=== PATIENT | male | born 1930 | race Caucasian/White ===

== ENCOUNTER 2017-03-12 16:29 | Inpatient (IN) | payer MEDICARE, OTHER ==
[2017-03-12] MEDS ORDERED: FUROSEMIDE 100 MG SOL IV ONE (16:47)
[2017-03-12 16:56] LABS: BASOPHILS % (AUTO) 1 % (0-3); EOSINOPHILS % (AUTO) 0 % (0-9); HEMATOCRIT 32 % (39-53); MEAN CORPUSCULAR HGB CONC 32.2 gm/dl (32.0-36.0); MEAN CORPUSCULAR VOLUME 94 fL (80-100); MONOCYTES % (AUTO) 10.2 % (0-12); NEUTROPHILS % (AUTO) 79.4 % (37-80)
[2017-03-12 17:12] LABS: ALBUMIN 3.3 gm/dl (3.4-5.0); CALCIUM 8.7 mg/dl (8.5-10.1); POTASSIUM 4.4 mMol/L (3.5-5.1)
[2017-03-12] MEDS ORDERED: FAMOTIDINE 10 MG PO PRN (17:53)
[2017-03-12] MEDS ORDERED: CARVEDILOL 3.125 MG TAB PO SCH (18:00)
[2017-03-12] MEDS: SODIUM CHLORIDE 0.9% FLUSH 10 ML SOL IV SCH ×2 (18:09→22:01)
[2017-03-12] MEDS ORDERED: FAMOTIDINE 20 MG TAB PO PRN (18:37)
[2017-03-12] MEDS: NOVOLOG FLEXPEN SC SCH ×2 (18:53→21:34)
[2017-03-12] MEDS: LATANOPROST 0.005% SOL LEFTEYE SCH (21:25)
[2017-03-12] MEDS: TRIAMCINOLONE 0.1% CREAM CRE TOP SCH (21:26)
[2017-03-12] MEDS: SIMVASTATIN 20 MG TAB PO SCH (21:27)
[2017-03-12] MEDS: TEMAZEPAM 15MG 15 MG CAP PO PRN (22:01)
[2017-03-13] MEDS: SODIUM CHLORIDE 0.9% FLUSH 10 ML SOL IV SCH ×3 (01:31→17:27)
[2017-03-13] MEDS: NOVOLOG FLEXPEN SC SCH ×4 (06:58→20:21)
[2017-03-13] MEDS ORDERED: LEVOTHYROXINE SODIUM 50 MCG TAB PO SCH (07:00)
[2017-03-13] MEDS ORDERED: GLIMEPIRIDE 2 MG TAB PO SCH ×2 (07:00→09:00)
[2017-03-13 07:28] LABS: HEMATOCRIT 30 % (39-53); MEAN CORPUSCULAR HGB CONC 32.8 gm/dl (32.0-36.0); MEAN CORPUSCULAR VOLUME 93 fL (80-100)
[2017-03-13 07:39] LABS: CALCIUM 9.1 mg/dl (8.5-10.1); THYROID STIMULATING HORMONE 4.687 uIU/ml (0.358-3.740)
[2017-03-13 08:13] LABS: EOSINOPHILS % (MANUAL) 1 % (0-9); LYMPHOCYTES % (MANUAL) 12 % (10-50)
[2017-03-13 08:14] LABS: ANISOCYTOSIS SLIGHT AMT; BASOPHILS % (MANUAL) 0 % (0-3); TARGET CELLS PRESENT
[2017-03-13 08:15] LABS: OVALOCYTES PRESENT
[2017-03-13] MEDS ORDERED: POTASSIUM CHLORIDE 10 MEQ TER PO SCH (09:00)
[2017-03-13] MEDS ORDERED: FUROSEMIDE 100 MG SOL IV ONE (09:00)
[2017-03-13] MEDS: POTASSIUM CHLORIDE 10 MEQ TER PO SCH ×4 (09:06→20:17)
[2017-03-13] MEDS: TRIAMCINOLONE 0.1% CREAM CRE TOP SCH ×2 (09:07→20:07)
[2017-03-13] MEDS: LEVOTHYROXINE SODIUM 50 MCG TAB PO SCH (09:08)
[2017-03-13] MEDS: LATANOPROST 0.005% SOL LEFTEYE SCH (20:18)
[2017-03-13] MEDS: SIMVASTATIN 20 MG TAB PO SCH (20:19)
[2017-03-14] MEDS: TEMAZEPAM 15MG 15 MG CAP PO PRN ×2 (01:10→21:08)
[2017-03-14] MEDS: SODIUM CHLORIDE 0.9% FLUSH 10 ML SOL IV SCH ×4 (01:10→18:34)
[2017-03-14] MEDS: LEVOTHYROXINE SODIUM 50 MCG TAB PO SCH (06:25)
[2017-03-14] MEDS: NOVOLOG FLEXPEN SC SCH ×4 (06:25→21:15)
[2017-03-14 07:21] LABS: BASOPHILS % (AUTO) 1 % (0-3); EOSINOPHILS % (AUTO) 0 % (0-9); HEMATOCRIT 32 % (39-53); MEAN CORPUSCULAR HGB CONC 32.3 gm/dl (32.0-36.0); MEAN CORPUSCULAR VOLUME 95 fL (80-100); MONOCYTES % (AUTO) 12.5 % (0-12); NEUTROPHILS % (AUTO) 77.4 % (37-80)
[2017-03-14 07:40] LABS: CALCIUM 9.3 mg/dl (8.5-10.1)
[2017-03-14] MEDS: POTASSIUM CHLORIDE 10 MEQ TER PO SCH ×4 (08:43→21:08)
[2017-03-14] MEDS: TRIAMCINOLONE 0.1% CREAM CRE TOP SCH ×2 (08:46→21:09)
[2017-03-14] MEDS ORDERED: GLIPIZIDE 5 MG TAB PO SCH (09:00)
[2017-03-14] MEDS: GLIPIZIDE 5 MG TAB PO SCH (09:43)
[2017-03-14] MEDS: FUROSEMIDE 40 MG SOL IV SCH ×2 (09:43→12:50)
[2017-03-14] MEDS ORDERED: WARFARIN SODIUM 2.5 MG TAB PO SCH (18:00)
[2017-03-14] MEDS ORDERED: WARFARIN SODIUM 5 MG TAB PO SCH (18:00)
[2017-03-14] MEDS: SIMVASTATIN 20 MG TAB PO SCH (21:08)
[2017-03-14] MEDS: LATANOPROST 0.005% SOL LEFTEYE SCH (21:08)
[2017-03-15] MEDS: SODIUM CHLORIDE 0.9% FLUSH 10 ML SOL IV SCH ×4 (02:29→18:51)
[2017-03-15] MEDS: NOVOLOG FLEXPEN SC SCH ×4 (06:31→20:56)
[2017-03-15] MEDS: LEVOTHYROXINE SODIUM 50 MCG TAB PO SCH (07:00)
[2017-03-15] MEDS: GLIPIZIDE 5 MG TAB PO SCH (08:38)
[2017-03-15] MEDS: POTASSIUM CHLORIDE 10 MEQ TER PO SCH ×6 (08:39→20:58)
[2017-03-15] MEDS: TRIAMCINOLONE 0.1% CREAM CRE TOP SCH ×2 (08:39→21:03)
[2017-03-15] MEDS: FUROSEMIDE 40 MG SOL IV SCH ×2 (08:52→12:59)
[2017-03-15] MEDS ORDERED: GLIPIZIDE 5 MG TAB PO SCH ×2 (09:40→09:45)
[2017-03-15] MEDS: SPIRONOLACTONE 25 MG TAB PO SCH (10:09)
[2017-03-15] MEDS ORDERED: WARFARIN SODIUM 5 MG TAB PO SCH (18:00)
[2017-03-15] MEDS: LATANOPROST 0.005% SOL LEFTEYE SCH (20:56)
[2017-03-15] MEDS: SIMVASTATIN 20 MG TAB PO SCH (20:57)
[2017-03-15] MEDS: TEMAZEPAM 15MG 15 MG CAP PO PRN ×2 (21:12→23:42)
[2017-03-16] MEDS: SODIUM CHLORIDE 0.9% FLUSH 10 ML SOL IV SCH ×4 (03:10→12:09)
[2017-03-16] MEDS: LEVOTHYROXINE SODIUM 50 MCG TAB PO SCH (06:40)
[2017-03-16] MEDS: NOVOLOG FLEXPEN SC SCH ×2 (06:41→12:05)
[2017-03-16 07:32] LABS: BASOPHILS % (AUTO) 2 % (0-3); EOSINOPHILS % (AUTO) 0 % (0-9); HEMATOCRIT 33 % (39-53); MEAN CORPUSCULAR HGB CONC 32.6 gm/dl (32.0-36.0); MEAN CORPUSCULAR VOLUME 94 fL (80-100); MONOCYTES % (AUTO) 13.3 % (0-12); NEUTROPHILS % (AUTO) 75.6 % (37-80)
[2017-03-16 07:35] LABS: CALCIUM 9.3 mg/dl (8.5-10.1); POTASSIUM 4.3 mMol/L (3.5-5.1)
[2017-03-16 08:45] VITALS: BP 164/71; PULSE 64; RESP 18; TEMP 97.8; O2SAT 93
[2017-03-16] MEDS: FUROSEMIDE 40 MG SOL IV SCH ×2 (08:49→12:09)
[2017-03-16] MEDS: TRIAMCINOLONE 0.1% CREAM CRE TOP SCH (08:49)
[2017-03-16] MEDS: SPIRONOLACTONE 25 MG TAB PO SCH (08:49)
[2017-03-16] MEDS: POTASSIUM CHLORIDE 10 MEQ TER PO SCH (09:44)
[2017-03-16] MEDS ORDERED: AMLODIPINE 5 MG TAB PO SCH (11:45)
== END 2017-03-16 14:22 | disposition home health service (06) | DRG 292 ==
LOC: ACUTE CARE 16:29
PROVIDERS: ADMIT Emergency Medicine; ATTEND Emergency Medicine
DX: I50.9 Heart failure, unspecified (principal); N17.9 Acute kidney failure, unspecified; E11.59 Type 2 diabetes mellitus with other circulatory complications; I13.0 Hypertensive heart and chronic kidney disease with heart failure and stage 1 through stage 4 chronic kidney disease, or unspecified chronic kidney disease; E87.6 Hypokalemia; S81.802A Unspecified open wound, left lower leg, initial encounter; Z79.01 Long term (current) use of anticoagulants; N18.9 Chronic kidney disease, unspecified; E03.2 Hypothyroidism due to medicaments and other exogenous substances; T46.2X5A Adverse effect of other antidysrhythmic drugs, initial encounter
CPT/HCPCS: 36415; 71010; 80048; 80053; 82962; 83880; 84443; 85007; 85025; 85027; 85610; 93005; 93012; 93306; J1940; A6232; J1815

== ENCOUNTER 2017-04-13 21:54 | Inpatient (IN) | payer MEDICARE, OTHER ==
[~2017-04-13 21:54] MED LIST: HYDROMORPHONE HCL 2 MG/ML SOL IV ONE; ONDANSETRON HCL 4 MG/2 ML SOL IV ONE
[2017-04-13] MEDS ORDERED: FUROSEMIDE 100 MG SOL IV ONE (22:22)
[2017-04-13] MEDS ORDERED: FUROSEMIDE 100 MG SOL ONE (22:29)
[2017-04-13 22:32] LABS: BASOPHILS % (AUTO) 2 % (0-3); EOSINOPHILS % (AUTO) 0 % (0-9); HEMATOCRIT 32 % (39-53); MEAN CORPUSCULAR HGB CONC 34.1 gm/dl (32.0-36.0); MEAN CORPUSCULAR VOLUME 91 fL (80-100); MONOCYTES % (AUTO) 12.7 % (0-12); NEUTROPHILS % (AUTO) 79.9 % (37-80)
[2017-04-13 22:47] LABS: ALBUMIN 3.3 gm/dl (3.4-5.0); ALT 36 IU/L (14-63); CALCIUM 8.4 mg/dl (8.5-10.1); GLOM FILT RATE 21 mL/min (>60); POTASSIUM 4.4 mMol/L (3.5-5.1); SODIUM 124 mMol/L (136-145)
[2017-04-14] MEDS ORDERED: CARBOXYMETHYLCELLULOSE OP PRN (00:10)
[2017-04-14] MEDS ORDERED: FAMOTIDINE 20 MG TAB PO PRN (00:10)
[2017-04-14] MEDS: TEMAZEPAM 15MG 15 MG CAP PO PRN ×2 (01:09→21:59)
[2017-04-14] MEDS: LEVOTHYROXINE SODIUM 50 MCG TAB PO SCH (06:08)
[2017-04-14] MEDS ORDERED: [UNRECOGNIZED DRUG - OTHER] TOP SCH (07:00)
[2017-04-14] MEDS ORDERED: ALLOPURINOL 100 MG TAB PO SCH (07:00)
[2017-04-14] MEDS ORDERED: GLIMEPIRIDE 2 MG TAB PO SCH ×2 (07:00→09:00)
[2017-04-14 07:17] LABS: CALCIUM 8.2 mg/dl (8.5-10.1); POTASSIUM 3.3 mMol/L (3.5-5.1)
[2017-04-14] MEDS ORDERED: FUROSEMIDE 40 MG SOL IV SCH (08:00)
[2017-04-14] MEDS: SODIUM CHLORIDE 0.9% FLUSH 10 ML SOL IV SCH ×3 (08:12→23:14)
[2017-04-14] MEDS ORDERED: WARFARIN SODIUM 2.5 MG TAB PO SCH ×2 (09:00→18:00)
[2017-04-14] MEDS ORDERED: FUROSEMIDE 100 MG SOL IV SCH ×2 (09:00→11:00)
[2017-04-14] MEDS ORDERED: ENOXAPARIN 40 MG SOL SC SCH (09:00)
[2017-04-14] MEDS: SPIRONOLACTONE 25 MG TAB PO SCH (09:53)
[2017-04-14] MEDS: UBIDECARENONE 100 MG CAPSULE PO SCH (09:53)
[2017-04-14] MEDS: ALLOPURINOL 100 MG TAB PO SCH (09:54)
[2017-04-14] MEDS: CARVEDILOL 3.125 MG TAB PO SCH ×2 (09:54→21:25)
[2017-04-14] MEDS: FISH OIL 500 MG CAP PO SCH (09:54)
[2017-04-14] MEDS: MULTIVITAMIN2 1 EA TAB PO SCH (09:54)
[2017-04-14] MEDS: AMLODIPINE 5 MG TAB PO SCH (09:55)
[2017-04-14] MEDS: GLIMEPIRIDE 2 MG TAB PO SCH (10:04)
[2017-04-14] MEDS ORDERED: PEG-400/PROPYLENE GLYCOL 1 DROP SOL OP PRN (10:44)
[2017-04-14] MEDS: FUROSEMIDE 100 MG SOL IV SCH ×2 (15:32→23:14)
[2017-04-14] MEDS: LATANOPROST 0.005% SOL LEFTEYE SCH (21:25)
[2017-04-14] MEDS: SIMVASTATIN 20 MG TAB PO SCH (21:25)
[2017-04-15] MEDS: LEVOTHYROXINE SODIUM 50 MCG TAB PO SCH (06:03)
[2017-04-15 07:32] LABS: CALCIUM 8.5 mg/dl (8.5-10.1)
[2017-04-15] MEDS: FUROSEMIDE 100 MG SOL IV SCH ×2 (08:44→16:01)
[2017-04-15] MEDS: FISH OIL 500 MG CAP PO SCH (08:45)
[2017-04-15] MEDS: AMLODIPINE 5 MG TAB PO SCH (08:45)
[2017-04-15] MEDS: GLIMEPIRIDE 2 MG TAB PO SCH (08:45)
[2017-04-15] MEDS: UBIDECARENONE 100 MG CAPSULE PO SCH (08:45)
[2017-04-15] MEDS: MULTIVITAMIN2 1 EA TAB PO SCH (08:45)
[2017-04-15] MEDS: SODIUM CHLORIDE 0.9% FLUSH 10 ML SOL IV SCH ×2 (08:45→16:01)
[2017-04-15] MEDS: SPIRONOLACTONE 25 MG TAB PO SCH (08:45)
[2017-04-15] MEDS: CARVEDILOL 3.125 MG TAB PO SCH ×2 (08:45→21:43)
[2017-04-15] MEDS: ALLOPURINOL 100 MG TAB PO SCH (08:46)
[2017-04-15] MEDS ORDERED: WARFARIN SODIUM 5 MG TAB PO SCH ×2 (09:00→18:00)
[2017-04-15] MEDS: POTASSIUM CHLORIDE 10 MEQ TER PO SCH ×2 (10:51→21:44)
[2017-04-15] MEDS: TEMAZEPAM 15MG 15 MG CAP PO PRN (21:43)
[2017-04-15] MEDS: SIMVASTATIN 20 MG TAB PO SCH (21:43)
[2017-04-15] MEDS: LATANOPROST 0.005% SOL LEFTEYE SCH (21:44)
[2017-04-16] MEDS: SODIUM CHLORIDE 0.9% FLUSH 10 ML SOL IV SCH ×5 (00:35→23:30)
[2017-04-16] MEDS: FUROSEMIDE 100 MG SOL IV SCH ×2 (00:36→08:13)
[2017-04-16] MEDS: LEVOTHYROXINE SODIUM 50 MCG TAB PO SCH (06:52)
[2017-04-16 07:35] LABS: CALCIUM 8.5 mg/dl (8.5-10.1)
[2017-04-16 07:38] LABS: POTASSIUM 2.9 mMol/L (3.5-5.1)
[2017-04-16] MEDS ORDERED: POTASSIUM CHLORIDE 2 MEQ/ML 40 MEQ, LIDOCAINE HCL 1% MDV 2 ML in SODIUM CHLORIDE 0.9% 5... IV ONE (08:11)
[2017-04-16] MEDS: UBIDECARENONE 100 MG CAPSULE PO SCH (08:14)
[2017-04-16] MEDS: SPIRONOLACTONE 25 MG TAB PO SCH (08:14)
[2017-04-16] MEDS: CARVEDILOL 3.125 MG TAB PO SCH ×2 (08:14→20:43)
[2017-04-16] MEDS: FISH OIL 500 MG CAP PO SCH (08:14)
[2017-04-16] MEDS: AMLODIPINE 5 MG TAB PO SCH (08:14)
[2017-04-16] MEDS: ALLOPURINOL 100 MG TAB PO SCH (08:15)
[2017-04-16] MEDS: MULTIVITAMIN2 1 EA TAB PO SCH (08:15)
[2017-04-16] MEDS ORDERED: LIDOCAINE HCL 1% MPF SOL ONE (09:38)
[2017-04-16] MEDS ORDERED: POTASSIUM CHLORIDE 2 MEQ/ML SOL IV ONE (09:38)
[2017-04-16] MEDS: POTASSIUM CHLORIDE 10 MEQ TER PO SCH ×2 (09:48→20:42)
[2017-04-16] MEDS ORDERED: WARFARIN SODIUM 5 MG TAB PO ONE (18:00)
[2017-04-16] MEDS: LATANOPROST 0.005% SOL LEFTEYE SCH (20:34)
[2017-04-16] MEDS: SIMVASTATIN 20 MG TAB PO SCH (20:43)
[2017-04-16] MEDS ORDERED: FUROSEMIDE 100 MG SOL IV SCH (21:00)
[2017-04-16] MEDS: TEMAZEPAM 15MG 15 MG CAP PO PRN ×2 (21:48→23:30)
[2017-04-17] MEDS: LEVOTHYROXINE SODIUM 50 MCG TAB PO SCH (06:59)
[2017-04-17 07:25] LABS: CALCIUM 8.7 mg/dl (8.5-10.1); POTASSIUM 3.1 mMol/L (3.5-5.1)
[2017-04-17] MEDS ORDERED: POTASSIUM CHLORIDE 2 MEQ/ML 60 MEQ, LIDOCAINE HCL 1% MDV 2 ML in SODIUM CHLORIDE 0.9% 1... IV ONE (07:52)
[2017-04-17] MEDS ORDERED: LIDOCAINE HCL 1% MPF SOL ONE (08:48)
[2017-04-17] MEDS ORDERED: POTASSIUM CHLORIDE 2 MEQ/ML SOL IV ONE (08:49)
[2017-04-17] MEDS: SODIUM CHLORIDE 0.9% FLUSH 10 ML SOL IV SCH ×3 (09:14→23:52)
[2017-04-17] MEDS: SPIRONOLACTONE 25 MG TAB PO SCH (09:15)
[2017-04-17] MEDS: UBIDECARENONE 100 MG CAPSULE PO SCH (09:19)
[2017-04-17] MEDS: FISH OIL 500 MG CAP PO SCH (09:20)
[2017-04-17] MEDS: CARVEDILOL 3.125 MG TAB PO SCH ×2 (09:20→21:46)
[2017-04-17] MEDS: AMLODIPINE 5 MG TAB PO SCH (09:21)
[2017-04-17] MEDS: MULTIVITAMIN2 1 EA TAB PO SCH (09:22)
[2017-04-17] MEDS: POTASSIUM CHLORIDE 10 MEQ TER PO SCH ×2 (09:23→21:46)
[2017-04-17] MEDS: ALLOPURINOL 100 MG TAB PO SCH (09:23)
[2017-04-17] MEDS: FUROSEMIDE 40 MG TAB PO SCH ×2 (09:29→12:07)
[2017-04-17] MEDS ORDERED: WARFARIN SODIUM 2.5 MG TAB PO ONE (18:00)
[2017-04-17] MEDS: TEMAZEPAM 15MG 15 MG CAP PO PRN ×2 (21:46→23:52)
[2017-04-17] MEDS: LATANOPROST 0.005% SOL LEFTEYE SCH (21:48)
[2017-04-17] MEDS: SIMVASTATIN 20 MG TAB PO SCH (21:51)
[2017-04-18] MEDS: LEVOTHYROXINE SODIUM 50 MCG TAB PO SCH (06:21)
[2017-04-18 07:40] LABS: CALCIUM 8.8 mg/dl (8.5-10.1); POTASSIUM 3.8 mMol/L (3.5-5.1)
[2017-04-18] MEDS: SODIUM CHLORIDE 0.9% FLUSH 10 ML SOL IV SCH ×3 (08:46→21:09)
[2017-04-18] MEDS: SPIRONOLACTONE 25 MG TAB PO SCH (08:49)
[2017-04-18] MEDS: UBIDECARENONE 100 MG CAPSULE PO SCH (08:49)
[2017-04-18] MEDS: CARVEDILOL 3.125 MG TAB PO SCH ×2 (08:49→21:09)
[2017-04-18] MEDS: FISH OIL 500 MG CAP PO SCH (08:49)
[2017-04-18] MEDS: AMLODIPINE 5 MG TAB PO SCH (08:50)
[2017-04-18] MEDS: MULTIVITAMIN2 1 EA TAB PO SCH (08:50)
[2017-04-18] MEDS: POTASSIUM CHLORIDE 10 MEQ TER PO SCH ×2 (08:50→21:07)
[2017-04-18] MEDS: ALLOPURINOL 100 MG TAB PO SCH (08:51)
[2017-04-18] MEDS: FUROSEMIDE 80 MG TAB PO SCH ×2 (08:54→12:27)
[2017-04-18] MEDS ORDERED: WARFARIN SODIUM 2.5 MG TAB PO SCH ×2 (12:15→18:00)
[2017-04-18] MEDS: TEMAZEPAM 15MG 15 MG CAP PO PRN (21:07)
[2017-04-18] MEDS: LATANOPROST 0.005% SOL LEFTEYE SCH (21:08)
[2017-04-18] MEDS: SIMVASTATIN 20 MG TAB PO SCH (21:09)
[2017-04-19] MEDS: SODIUM CHLORIDE 0.9% FLUSH 10 ML SOL IV SCH ×2 (00:14→08:33)
[2017-04-19] MEDS: LEVOTHYROXINE SODIUM 50 MCG TAB PO SCH (06:20)
[2017-04-19 07:35] LABS: CALCIUM 8.5 mg/dl (8.5-10.1); POTASSIUM 4.1 mMol/L (3.5-5.1)
[2017-04-19 08:13] VITALS: BP 115/52; PULSE 52; RESP 20; TEMP 97.6; O2SAT 96
[2017-04-19] MEDS: SPIRONOLACTONE 25 MG TAB PO SCH (08:56)
[2017-04-19] MEDS: CARVEDILOL 3.125 MG TAB PO SCH (08:57)
[2017-04-19] MEDS: FISH OIL 500 MG CAP PO SCH (08:57)
[2017-04-19] MEDS: UBIDECARENONE 100 MG CAPSULE PO SCH (08:57)
[2017-04-19] MEDS: AMLODIPINE 5 MG TAB PO SCH (08:58)
[2017-04-19] MEDS: FUROSEMIDE 80 MG TAB PO SCH (08:58)
[2017-04-19] MEDS: POTASSIUM CHLORIDE 10 MEQ TER PO SCH (08:58)
[2017-04-19] MEDS: MULTIVITAMIN2 1 EA TAB PO SCH (08:59)
[2017-04-19] MEDS: ALLOPURINOL 100 MG TAB PO SCH (09:00)
[2017-04-21] MEDS ORDERED: WARFARIN SODIUM 5 MG TAB PO SCH (18:00)
[2017-04-21] MEDS ORDERED: WARFARIN SODIUM 2.5 MG TAB PO SCH (18:00)
== END 2017-04-19 10:20 | disposition home health service (06) | DRG 292 ==
LOC: ED 21:54 → ACUTE CARE 04-14 00:02
PROVIDERS: ADMIT Emergency Medicine; ATTEND Family Medicine
DX: I50.9 Heart failure, unspecified (principal); N18.6 End stage renal disease; Z79.01 Long term (current) use of anticoagulants; N18.4 Chronic kidney disease, stage 4 (severe); E11.59 Type 2 diabetes mellitus with other circulatory complications; E11.22 Type 2 diabetes mellitus with diabetic chronic kidney disease; L97.829 Non-pressure chronic ulcer of other part of left lower leg with unspecified severity; E87.6 Hypokalemia; R60.9 Edema, unspecified; S41.112A Laceration without foreign body of left upper arm, initial encounter; S80.211A Abrasion, right knee, initial encounter
CPT/HCPCS: 36415; 71010; 80048; 80053; 82962; 83880; 84132; 84484; 85025; 85610; 93005; 93012; 94762; 96374; 99221; 99222; 99283; 99284; J1650; J1940; J3480; A4450; A6219; A6232; A6402; A6446; J2001

== ENCOUNTER 2017-04-26 10:16 | Emergency (ER) | payer MEDICARE, OTHER ==
[2017-04-26 10:32] LABS: BASOPHILS % (AUTO) 3 % (0-3); EOSINOPHILS % (AUTO) 0 % (0-9); HEMATOCRIT 32 % (39-53); MEAN CORPUSCULAR HGB CONC 32.8 gm/dl (32.0-36.0); MEAN CORPUSCULAR VOLUME 93 fL (80-100); MONOCYTES % (AUTO) 15.5 % (0-12); NEUTROPHILS % (AUTO) 75.1 % (37-80)
[2017-04-26 10:49] LABS: ALBUMIN 3.2 gm/dl (3.4-5.0); CALCIUM 9.1 mg/dl (8.5-10.1)
[2017-04-26 10:54] VITALS: TEMP 98.7
[2017-04-26] MEDS ORDERED: FUROSEMIDE 80 MG TAB PO ONE (14:48)
[2017-04-26] MEDS ORDERED: FUROSEMIDE 80 MG TAB ONE (14:51)
[2017-04-26] MEDS ORDERED: BACITRACIN 500 U/GM OIN TOP ONE ×2 (17:24→18:52)
[2017-04-26 19:33] VITALS: BP 121/51; PULSE 53; RESP 24; O2SAT 90
== END 2017-04-26 18:30 | disposition home or self-care (01) | DRG 605 ==
LOC: ED 10:16
DX: S01.00XA Unspecified open wound of scalp, initial encounter (principal); R51 Headache; W18.2XXA Fall in (into) shower or empty bathtub, initial encounter; Y92.002 Bathroom of unspecified non-institutional (private) residence as the place of occurrence of the external cause; Z79.01 Long term (current) use of anticoagulants
CPT/HCPCS: 36415; 70450; 71010; 80053; 82962; 85025; 85610; 85730; 93005; 99284; 99285; A6402; A6446

== ENCOUNTER 2017-04-27 13:07 | Inpatient (IN) | payer MEDICARE, OTHER ==
[2017-04-27] MEDS ORDERED: SODIUM CHLORIDE 0.9% FLUSH 10 ML SOL IV PRN (13:29)
[2017-04-27] MEDS ORDERED: NITROGLYCERIN 0.4 MG TAB SL PRN (13:29)
[2017-04-27 13:36] VITALS: RESP 24
[2017-04-27 13:54] LABS: BASOPHILS % (AUTO) 2 % (0-3); EOSINOPHILS % (AUTO) 1 % (0-9); HEMATOCRIT 33 % (39-53); MEAN CORPUSCULAR HGB CONC 32.8 gm/dl (32.0-36.0); MEAN CORPUSCULAR VOLUME 94 fL (80-100); MONOCYTES % (AUTO) 13.8 % (0-12); NEUTROPHILS % (AUTO) 77.6 % (37-80)
[2017-04-27] MEDS ORDERED: SODIUM CHLORIDE 0.9% 1000ML 1,000 ML IV ONE (13:55)
[2017-04-27 14:11] LABS: CALCIUM 8.7 mg/dl (8.5-10.1)
[2017-04-27 14:17] LABS: POTASSIUM 6.3 mMol/L (3.5-5.1)
[2017-04-27] MEDS ORDERED: DEXTROSE 50% 1 VIAL SOL IV ONE ×2 (14:49→14:53)
[2017-04-27] MEDS ORDERED: INSULIN HUMAN REGULAR 100 U/ML SOL IV ONE (14:50)
[2017-04-27] MEDS ORDERED: INSULIN HUMAN REGULAR 100 U/ML SOL ONE (15:00)
[2017-04-27] MEDS ORDERED: SODIUM POLYSTYRENE SULFONATE 15 GM/60 ML SUS PO SCH (15:30)
[2017-04-27] MEDS ORDERED: TEMAZEPAM 15MG 15 MG CAP PO PRN (15:58)
[2017-04-27] MEDS ORDERED: SODIUM CHLORIDE 0.9% 1000ML 1,000 ML IV SCH (16:00)
[2017-04-27] MEDS ORDERED: WARFARIN SODIUM 2.5 MG TAB PO SCH (16:00)
[2017-04-27 17:15] VITALS: TEMP 97.3
[2017-04-27 17:26] VITALS: BP 121/66; PULSE 43; O2SAT 97
[2017-04-27] MEDS ORDERED: CARVEDILOL 3.125 MG TAB PO SCH (18:00)
[2017-04-27 18:46] LABS: ABG PH 7.39 (7.35-7.45)
[2017-04-27] MEDS ORDERED: SIMVASTATIN 20 MG TAB PO SCH (21:00)
[2017-04-27] MEDS ORDERED: LATANOPROST 0.005% SOL LEFTEYE SCH (21:00)
[2017-04-28] MEDS ORDERED: ALLOPURINOL 100 MG TAB PO SCH (07:00)
[2017-04-28] MEDS ORDERED: [UNRECOGNIZED DRUG - OTHER] TOP SCH (07:00)
[2017-04-28] MEDS ORDERED: LEVOTHYROXINE SODIUM 50 MCG TAB PO SCH (07:00)
[2017-04-28] MEDS ORDERED: FUROSEMIDE 80 MG TAB PO SCH (09:00)
[2017-04-28] MEDS ORDERED: SPIRONOLACTONE 25 MG TAB PO SCH (09:00)
[2017-04-28] MEDS ORDERED: FAMOTIDINE 20 MG TAB PO PRN (09:00)
[2017-04-28] MEDS ORDERED: AMLODIPINE 5 MG TAB PO SCH (09:00)
[2017-04-28] MEDS ORDERED: WARFARIN SODIUM 5 MG TAB PO SCH (15:58)
== END 2017-04-27 21:00 | disposition short-term general hospital (02) | DRG 293 ==
LOC: ED 13:07 → UNDOADMIN 15:39 → ACUTE CARE 15:39
PROVIDERS: ADMIT Family Medicine; ATTEND Family Medicine
DX: E86.0 Dehydration (principal); E87.5 Hyperkalemia; J98.11 Atelectasis; R06.02 Shortness of breath; R53.1 Weakness; Z79.01 Long term (current) use of anticoagulants; I50.9 Heart failure, unspecified; R00.1 Bradycardia, unspecified; N18.9 Chronic kidney disease, unspecified
CPT/HCPCS: 36415; 36600; 71010; 74000; 80048; 82550; 82803; 84132; 84484; 85025; 85610; 85730; 93005; 93012; 94150; 96365; 96374; 96375; 99222; 99285; J1815; A4450; A6232; A6446

== ENCOUNTER 2017-05-19 16:15 | Observation (INO) | payer MEDICARE, OTHER ==
[2017-05-19] MEDS ORDERED: POTASSIUM CHLORIDE 10 MEQ TER PO ONE (18:39)
[2017-05-19] MEDS ORDERED: ACETAMINOPHEN 325 MG PO PRN (21:00)
[2017-05-19] MEDS ORDERED: LATANOPROST 0.005% SOL LEFTEYE SCH (21:00)
[2017-05-19] MEDS ORDERED: TEMAZEPAM 15MG 15 MG CAP PO PRN (21:00)
[2017-05-19] MEDS ORDERED: SENNOSIDES A AND B 8.6 MG TAB PO PRN (21:00)
[2017-05-19] MEDS ORDERED: FAMOTIDINE 10 MG PO PRN (21:00)
[2017-05-19] MEDS ORDERED: APAP/OXYCODONE 325/5 TAB PO PRN (21:00)
[2017-05-19] MEDS ORDERED: TORSEMIDE 20 MG TAB PO SCH (21:00)
[2017-05-19] MEDS: POTASSIUM CHLORIDE 10 MEQ TER PO SCH (22:13)
[2017-05-20] MEDS ORDERED: LEVOTHYROXINE SODIUM 50 MCG TAB PO SCH (07:00)
[2017-05-20] MEDS ORDERED: [UNRECOGNIZED DRUG - OTHER] TOP SCH (07:00)
[2017-05-20] MEDS ORDERED: ALLOPURINOL 100 MG TAB PO SCH (07:00)
[2017-05-20] MEDS ORDERED: FAMOTIDINE 20 MG TAB PO PRN (08:52)
[2017-05-20] MEDS ORDERED: MULTIVITAMIN2 1 EA TAB PO SCH (09:00)
[2017-05-20] MEDS ORDERED: AMLODIPINE 5 MG TAB PO SCH (09:00)
[2017-05-20] MEDS ORDERED: UBIDECARENONE 100 MG CAPSULE PO SCH (09:00)
[2017-05-20] MEDS ORDERED: POLYETHYLENE GLYCOL 17 GM/1 TBS PDS PO SCH (09:00)
[2017-05-20] MEDS ORDERED: TORSEMIDE 10 MG TABLET PO SCH (09:00)
[2017-05-20] MEDS ORDERED: ATORVASTATIN 10 MG TAB PO SCH (09:00)
[2017-05-20] MEDS ORDERED: FISH OIL 500 MG CAP PO SCH (09:00)
[2017-05-20 09:51] VITALS: BP 97/56; PULSE 85; RESP 18; TEMP 97.3; O2SAT 94
[2017-05-20] MEDS: POTASSIUM CHLORIDE 10 MEQ TER PO SCH (10:01)
== END 2017-05-20 16:05 | disposition hospice, inpatient (51) | DRG 605 ==
LOC: ED 16:15 → ACUTE CARE 20:56
PROVIDERS: ADMIT Family Medicine; ATTEND Family Medicine
DX: S00.91XA Abrasion of unspecified part of head, initial encounter (principal); Z79.01 Long term (current) use of anticoagulants; W01.0XXA Fall on same level from slipping, tripping and stumbling without subsequent striking against object, initial encounter
CPT/HCPCS: 36415; 70450; 82962; 85610; 99218; 99284; A6232